=== PATIENT | male | born 1965 | race Caucasian/White ===

== ENCOUNTER 2021-10-04 13:23 | Outpatient (CLI) | payer BC, SELFPAY ==
[2021-10-04 16:42] LABS: Chloride* 104 mmol/L (96-114); Sodium* 139 mmol/L (135-149)
[2021-10-04 16:43] LABS: Potassium* 4.6 mmol/L (3.6-5.1)
[2021-10-04 16:45] LABS: Creatinine* 0.8 mg/dL (0.5-1.5); Estimated Glomerular Filt Rate 104.51
[2021-10-04 16:46] LABS: Blood Urea Nitrogen* 19 mg/dL (7-30); Calcium* 9.6 mg/dL (8.4-10.6); Carbon Dioxide* 31 mmol/L (20-32); Glucose* 90 mg/dL (60-115)
== END 2021-10-04 13:24 | disposition home or self-care (01) ==
LOC: LAB 13:24
PROVIDERS: PCP Family Medicine; Visit Provider Family Medicine
DX: Z01.818 Encounter for other preprocedural examination (principal)
CPT/HCPCS: 36415; 80048

== ENCOUNTER 2021-10-19 06:34 | Day surgery (SDC) | payer BC, SELFPAY ==
[2021-10-19] VITALS (13 sets, daily range): BP systolic 123–154; BP diastolic 69–88; PULSE 66–82; RESP 12–16; TEMP 36.1–36.4; O2SAT 96–100; BMI 24.0
[2021-10-19] MEDS: LACTATED RINGERS 1000 ML 1,000 ML 100 ML IV (07:00)
[2021-10-19] MEDS: SODIUM CHLORIDE 0.9 % (FLUSH) 10 ML SYRINGE IVF (07:12)
[2021-10-19] MEDS: CEFAZOLIN 2 GM INJ IVP (08:20)
--- NOTE | 2021-10-19 09:00 | SUR.OPER ---
PATIENT QUESTIONS ANSWERED SATISFACTORILY PREOPERATIVELY.? PATIENT BROUGHT TO OR #4 PER CART.? Patient positioned supine on OR #4 bed.?The perioperative?team tucked arms bilaterally at the patient sides in a neutral position with the drawsheet.? Final approval of positioning by surgeon.?
--- NOTE | 2021-10-19 09:38 | PM.GSPRC ---
Operative Note Date of procedure: 10/19/21 Type of Procedure: Laparoscopic right inguinal hernia repair with mesh Procedure Description: After discussing the risks and benefits of the procedure, the patient signed informed consent.? The operative site was marked and the patient was brought to the operating room and placed on the operating table in supine position.? Care was taken to pad the patient's pressure points.?? The patient was then intubated by anesthesia.?? The operative site was then prepped and draped in the usual sterile fashion.? A time-out was then performed. A curvilinear incision was made below the umbilicus. Dissection was carried down to subcutaneous tissue until the anterior rectus fascia was encountered. This was incised off the midline on the right The rectus muscle fibers were then retracted exposing the posterior fascia. A port with a dissecting balloon was then introduced into the pre-preperitoneal space. This was inflated under direct vision. The balloon was deflated, removed, and a 10 mm working port was placed. The space was insuflated and a 10 mm 30-degree scope was then advanced into the space. Two 5 mm ports were placed in the midline under direct vision. Dissection began on the right side. Elias's ligament and the pubic bone was exposed medially. Following this, dissection was carried out laterally. An indirect defect was noted. The sac was dissected free from the cord structures using a combination of sharp and blunt dissection. Once the sac was completely reduced, a piece of Bard 3DMax mesh for the appropriate side was placed into the abdomen. This was positioned with the marker pointed medially. A Tacker was used to attach the mesh medially at Elias's ligament and 1 tack laterally with care to avoid the epigastric vessels and stay above the inguinal ligament. Once this was completed the sac was placed on top of the mesh and the preperitoneal space desufflated under direct vision. The ports were removed. The fascia from the infraumbilical port was closed with 0 Vicryl. The skin incisions were closed with absorbable subcuticular suture. Sterile dressings were then applied. The scrotum was examined to ensure that both testicles were down. Instrument sponge and needle counts were correct at the end of the case. ? The patient was then woken and transported to the recovery area in stable condition. ? The patient tolerated the procedure well. Findings: Indirect right inguinal hernia Anesthesia: GETA Surgeon: Simin Coleman MD Estimated blood loss (mL): 5 Condition: stable Disposition: PACU
--- NOTE | 2021-10-19 09:46 | W.ANESCHARGE ---
Anesthesia Charges Start Date/Time Anesthesia Start Date: 10/19/21 Anesthesia Start Time: 08:12 Stop Date/Time Anesthesia Stop Date: 10/19/21 Anesthesia Stop Time: 09:45 Summary Emergency: No
[2021-10-19] MEDS: HYDROCODONE-ACETAMIN 5-325 MG 1 TAB PO (10:34)
--- NOTE | 2021-10-19 11:07 | W.ANESCHARGE ---
Anesthesia Charges Start Date/Time Anesthesia Start Date: 10/19/21 Anesthesia Start Time: 08:12 Stop Date/Time Anesthesia Stop Date: 10/19/21 Anesthesia Stop Time: 09:45 Summary Emergency: No
== END 2021-10-19 11:48 | disposition home or self-care (01) ==
PROVIDERS: PCP Family Medicine; Visit Provider Surgery
PROC: (CPT 49650; principal; 2021-10-19 08:00)
DX: K40.90 Unilateral inguinal hernia, without obstruction or gangrene, not specified as recurrent (principal)
CPT/HCPCS: 49650; 00830; 00860; A9270; C1781; J0330; J0690; J1885; J2250; J2704; J2710; J3010; J7120

== ENCOUNTER 2022-02-19 10:45 | Outpatient (CLI) | payer BC, SELFPAY ==
--- OUTSIDE RECORDS SUMMARY | 2022-02-21 11:04 | XMS_ITS | Clinical Summary ---
:1965 Author Organization [facility] [place] [address] Care Team Providers Name Role Phone Alan Nance MD Primary Care Provider Allergies No known active allergies Medications Medication Sig Dispensed Refills Start Date End Date Status busPIRone (BUSPAR) 10 Take 20 mg by 0 10/20/2020 Active mg tablet mouth 2 times daily. cloNIDine HCL Take 0.1 mg by 0 11/10/2020 Active (CATAPRES) 0.1 mg mouth 2 times tablet daily. lisinopriL (PRINIVIL; Take 20 mg by 0 03/23/2020 Active ZESTRIL) 20 mg tablet mouth once daily. rosuvastatin (CRESTOR) Take 20 mg by 0 10/20/2020 Active 20 mg tablet mouth once daily with evening meal. venlafaxine (EFFEXOR Take 150 mg by 0 10/29/2020 Active XR) 150 mg mouth once daily Extended-Release with evening capsule meal. venlafaxine (EFFEXOR Take 75 mg by 0 10/29/2020 Active XR) 75 mg cp24 mouth once daily Extended-Release with a meal. capsule ALPRAZolam (XANAX) 0.5 each time if 0 01/27/2020 Active mg tablet needed. losartan (COZAAR) 50 mg once daily. 0 12/19/2020 Active tablet albuterol (PROAIR Inhale 2 Puffs by 0 Active RESPICLICK) 90 mouth every 4 mcg/actuation INHALER hours if needed. loratadine (CLARITIN) Take 10 mg by 0 Active 10 mg tablet mouth once daily. potassium citrate Take 1 Tablet (10 60 Tablet 11 01/04/2021 Active (UROCIT-K) 10 mEq mEq) by mouth 2 (1,080 mg) times daily. tabletIndications: Kidney stone fluticasone Inhale 1 Puff by 60 Each 0 01/11/2021 Active propion-salmeteroL mouth 2 times (Advair Diskus) 250-50 daily. mcg/Dose diskus inhalerIndications: Wheezing fluticasone Inhale 1 Puff by 60 Each 0 01/11/2021 Active propion-salmeteroL mouth 2 times (Advair Diskus) 250-50 daily. mcg/Dose diskus inhalerIndications: Wheezing baclofen (LIORESAL) 10 Take 1 Tablet (10 15 Tablet 0 Active mg tabletIndications: mg) by mouth 4 Acute exacerbation of times daily. chronic low back pain, Chronic left-sided low back pain with left-sided sciatica Active Problems No known active problems Encounters Date Type Specialty Care Team Description 02/18/2022 Emergency Ball, Barbara Inguinal alison n, unspecified laterality (Primary Dx); MD Asiya Nephrolithiasis 02/17/2022 Office Visit Care, [facility] Ur[facility] Injury; Er ror-please disregard (appt cancellation) 02/17/2022 Travel from Last 3 Months Social History Tobacco Use Types Packs/Day Years Used Date Former Smoker Cigarettes Quit: 1989 Smokeless Tobacco: Current User Chew Tobacco Cessation: Ready to Quit: No; Co unseling Given: Yes Alcohol Use Standard Drinks/Week Comments Not Currently 0 (1 standard drink = 0.6 oz pure alcoho l) Sex Assigned at Date Recorded Not on file COVID-19 Exposure Response Date Recorded In the last 10 days, have you been in contact No / Unsure 02/17/2022 12:34 PM SHAKE FEEDER with someone who was confirmed or suspected to have Coronavirus/COVID-19? Obstetrics History Last Filed Vital Signs Vital Sign [place] Time Taken Comments Blood Pressure 142/88 02/18/2022 2:47 PM SHAKE FEEDER Pulse 78 02/18/2022 2:47 PM SHAKE FEEDER Temperature 36.6 ??C (97.8 ??F) 02/18/2022 2:47 PM SHAKE FEEDER Respiratory Rate 18 02/18/2022 2:47 PM SHAKE FEEDER Oxygen Saturation 97% 02/18/2022 2:47 PM SHAKE FEEDER Inhaled Oxygen Concentration - - Weight 78.5 kg (173 lb) 02/18/2022 12:02 PM SHAKE FEEDER Height 180.3 cm (5' 11) 02/18/2022 12:02 PM SHAKE FEEDER Body Mass Index 24.13 02/18/2022 12:02 PM SHAKE FEEDER Plan of Treatment Health Maintenance Due Date Last Done Comments Tdap 1977 Depression screening for age 12+ 1978 HIV for age 15-65 1981 BMI (ht and wt on same day) for age 18+ 01/04/1984 Hepatitis C screening for age 18-79 01/04/1984 Tetanus booster 1986 Colonoscopy through age 75 2011 Lipids for age 45-75 2011 Zoster (shingles) series for age 50+ (1 of 2) 01/04/2016 COVID-19 vaccine series (2 - Booster for Maira 08/12/2020 06/17/2020 series) Influenza for age 50-64 11/23/2021 Medical Devices Implanted Type Area Horticultural Farmer Device Shelf Model / Identifier Expiration Serial / Lot Date Stent Uret [id number] Contour - [id number] Left: BSC Urolo gy 08/25/2023 [id number] / Implanted: Qty: 1 on 12/22/2020 by Quinn Pak MD at [facility] Ureter / [id number] Procedures Procedure Name Priority Date/Time Associated Comments Diagnosis URINALYSIS STAT 02/18/2022 2:07 PM Results f or this MICROSCOPIC SHAKE FEEDER procedure are i n the results section. UA W/ SEDIMENT EXAM STAT 02/18/2022 2:07 PM Re sults for this REFLEXED PER CRITERIA SHAKE FEEDER proced ure are in the results section. CT ABDOMEN PELVIS W STAT 02/18/2022 1:25 PM Re sults for this SHAKE FEEDER procedure are i n the results section. BASIC METABOLIC PANEL STAT 02/18/2022 12:25 Re sults for this PM SHAKE FEEDER procedure are i n the results section. CBC W PLT NO DIFF STAT 02/18/2022 12:25 Result s for this PM SHAKE FEEDER procedure are i n the results section. from Last 3 Months Results (ABNORMAL) URINALYSIS MICROSCOPIC (02/18/2022 2:07 PM SHAKE FEEDER) [facility] Method Time Signature RBC 11-25 (A) 0-2, None 02/18/2022 [place] Seen /HPF 2:19 PM [facility] LABOR[facility]ORY WBC 0-2 0-2, 3-5, 02/18/2022 [place] None Seen 2:19 PM [facility] /HPF LABORATORY BACTERIA Few None 02/18/2022 [place] Seen, 2:19 PM [facility] Rare, Few LABORATORY Bacteria/ HPF EPITHELIAL Few None 02/18/2022 [facility] CELLS Seen, Few 2:19 PM [facility] Epi/HPF LABORATORY RENAL Few Few 02/18/2022 [facility] EPITHELIAL 2:19 PM [facility] CELLS LABORATORY Mucus Present 02/18/2022 [place] 2:19 PM [facility] AMORPHOUS Present (A) (none) 02/18/2022 [place] 2:19 PM [facility]OR[facility]ORY Specimen Anatomical Collection Method Collection Time Receive d Time (Source) Location / / Volume Laterality Urine URINE SPECIMEN / Non-Blood / 02/18/2022 2:07 PM 02/18 2:10 Unknown Unknown SHAKE FEEDER [facility] Barbara Randle MD URINE Performing Organization Address City/State/ZIP Code Phon e Number [facility] [address] [place] [address] (ABNORMAL) URINALYSIS W REFLEX MICROSCOPIC IF POSITIVE (02/18/2022 2:07 PM SHAKE FEEDER) [facility] Method Time Signature COLOR Yellow Yellow Color 02/18/2022 [facility] 2:18 PM [facility] CLARITY Slightly Clear 02/18/2022 [facility] Cloudy (A) Clarity 2:18 PM [facility] SPECIFIC 1.010 1.010, 02/18/2022 [place] GRAVITY,URINE 1.015, 2:18 PM [facility] MEDICAL 1.020, 1.025 [place] [facility] PH,URINE 7.5 6.0, 7.0, 02/18/2022 [place] 8.0, 5.5, 2:18 PM [facility] MEDICAL 6.5, 7.5, CENTER 8.5 LABORATORY UROBILINOGEN, Normal Normal EU/dl 02/18/2022 [facility] QUALITATIVE 2:18 PM [facility] PROTEIN, Negative Negative 02/18/2022 [facility] URINE mg/dL 2:18 PM [facility] GLUCOSE, Negative Negative 02/18/2022 [facility] URINE mg/dL 2:18 PM [facility] LABOR[facility]ORY KETONES,URINE Negative Negative 02/18/2022 [facility] mg/dL 2:18 PM [facility] BILIRUBIN,URI Negative Negative 02/18/2022 [facility] NE 2:18 PM [facility] OCCULT Moderate (A) Negative 02/18/2022 [facility] BLOOD,URINE 2:18 PM [facility] NITRITE Negative Negative 02/18/2022 [place] 2:18 PM [facility] LEUKOCYTE Negative Negative 02/18/2022 [facility] ESTERASE 2:18 PM [facility] Specimen Anatomical Collection Method Collection Time Receive d Time (Source) Location / / Volume Laterality Urine URINE SPECIMEN / Non-Blood / 02/18/2022 2:07 PM 02/18 2:10 Unknown Unknown SHAKE FEEDER PM SHAKE FEEDER Barbara Randle MD URINE Performing Organization Address City/State/ZIP Code Phon e Number [facility] [address] [place] [address] CT ABD/PELVIS W IV CONTRAST (02/18/2022 1:25 PM SHAKE FEEDER) Anatomical Region Laterality Modality Abdomen, Pelvis, AORTA, LIVER, SPLEEN Co mputed Tomography Specimen (Source) Anatomical Collection Method Collection Time Re ceived Time Location / / Volume Laterality 02/18/2022 1:54 PM SHAKE FEEDER Impressions 02/18/2022 1:54 PM SHAKE FEEDER 1. Left nephrolithiasis with partially obstructing calculus in mid left ureter. Left ureteral calculus measures 8 mm in craniocaudal dimension. Correlate with any left-sided flank pain. 2. No obstructing right renal or uretera l calculi. No right-sided hydronephrosis. 3. Cholelithiasis. 4. Normal appendix. Please note that all CT scans at this [facility] use dose modulation, iterative reconstruction, and/or weight-based dosing when appropriate to reduce radiation dose to as low as reasonably achievable. Dictated by Mahin Esquivel MD @ 02/18/2022 1:54:52 PM (Electronically Signed) Narrative 02/18/2022 1:54 PM SHAKE FEEDER For Patients: ??As a result of the Cures Act, medical imaging exams and procedure report s are released immediately into your [facility]. ??You may view this report before your referring provider. ??If you have questions, please contact your health care provider. INDICATION: Right lower quadrant abdominal pain. TECHNIQUE: CT abdomen and pelvis acquired with i.v. 100 mL Omnipaque 300. Coronal and sagittal reformats were obtained. COMPARISON: None FINDINGS: Housing Counselor CT images: Nonobstructive bowel ga s pattern. Left renal calculi are noted. Moderate stool burden in the ascending colon and rectum. Lower chest: 6 mm noncalcified nodule in the left lower lobe on series 3, image 3. Liver: Unremarkable. Spleen: Unremarkable. Pancreas: Unremarkable. Gallbladder and bile ducts: Numerous lay ering gallstones. No acute inflammatory changes in the gallbladder fossa. Bile ducts normal in caliber. Kidneys: Coarse calcifications in the lo wer pole left kidney on series 2, image 59, largest measuring 7.4 mm on series 2, image 60. Bilateral renal cysts. Minimal asymmetric fullness to the left renal c ollecting system and proximal left urete r. There is obstructing calculus in the mid left ureter, size estimated at 8 mm on coronal reformat series 4, image 47. Adrenal glands: Unremarkable. GI tract: Unremarkable. The appendix is normal in appearance and size. Vascular: Unremarkable. Lymph nodes: Unremarkable. Miscellaneous: Unremarkable. No pneumope ritoneum is seen. No significant ascites is noted. Pelvic Organs: Likely bilateral hydrocel es. No bladder wall calcifications. Mild enlargement of prostate gland. No free pelvic fluid. No enlarged inguinal or pelvic sidewall lymph nodes. Bones: Unremarkable for age. Severe dege nerative disc disease at L5-S1. Procedure Note Mahin Esquivel MD - 02/18/2022F ormatting of this note might be different from the original. For Patients: As a result of the Cures Act, medical imaging exams and procedure reports are released immediately into your electronic medical record. You may view this report before your referring provider. If you have questions, please contact yo health care provider. INDICATION: Right lower quadrant abdominal pain. TECHNIQUE: CT abdomen and pelvis acquired with i.v. 100 mL Omnipaque 300. Coronal and sagittal reformats were obtained. COMPARISON: None FINDINGS: Housing Counselor CT images: Nonobstructive bowel ga s pattern. Left renal calculi are noted. Moderate stool burden in the ascending colon and rectum. Lower chest: 6 mm noncalcified nodule in the left lower lobe on series 3, image 3. Liver: Unremarkable. Spleen: Unremarkable. Pancreas: Unremarkable. Gallbladder and bile ducts: Numerous lay ering gallstones. No acute inflammatory changes in the gallbladder fossa. Bile ducts normal in caliber. Kidneys: Coarse calcifications in the lo wer pole left kidney on series 2, image 59, largest measuring 7.4 mm on series 2, image 60. Bilateral renal cysts. Minimal asymmetric fullness to the left renal collecting system and proximal left ureter. There is obstructi ng calculus in the mid left ureter, size estimated at 8 mm on coronal reformat series 4, image 47. Adrenal glands: Unremarkable. GI tract: Unremarkable. The appendix is normal in appearance and size. Vascular: Unremarkable. Lymph nodes: Unremarkable. Miscellaneous: Unremarkable. No pneumope ritoneum is seen. No significant ascites is noted. Pelvic Organs: Likely bilateral hydrocel es. No bladder wall calcifications. Mild enlargement of prostate gland. No free pelvic fluid. No enlarged inguinal or pelvic sidewall lymph nodes. Bones: Unremarkable for age. Severe dege nerative disc disease at L5-S1. IMPRESSION: 1. Left nephrolithiasis with partially o bstructing calculus in mid left ureter. Left ureteral calculus measures 8 mm in craniocaudal dimension. Correlate with any left-sided flank pain. 2. No obstructing right renal or uretera l calculi. No right-sided hydronephrosis. 3. Cholelithiasis. 4. Normal appendix. Please note that all CT scans at this [facility] use dose modulation, iterative reconstruction, and/or weight-based dosing when appropriate to reduce radiation dose to as low as reasonably achievable. Dictated by Mahin Esquivel MD @ 02/18/2022 1:54:52 PM (Electronically Signed) Barbara Randle MD CT (ABNORMAL) CBC W PLT NO DIFF (02/18/2022 12:25 PM SHAKE FEEDER) [facility] Time Signature WHITE BLOOD 3.9 (L) 4.5 - 11.0 02/18/2022 [place] COUNT thou/cu mm 12:31 PM [facility] RED BLOOD COUNT 5.12 4.30 - 02/18/2022 [place] 5.90 12:31 PM [facility] mil/cu mm LABORATORY HEMOGLOBIN 15.3 13.5 - 02/18/2022 [place] 17.5 g/dL 12:31 PM [facility] HEMATOCRIT 46.5 37.0 - 02/18/2022 [place] 53.0 % 12:31 PM [facility] MCV 91 80 - 100 02/18/2022 [place] fL 12:31 PM [facility] MCH 29.9 26.0 - 02/18/2022 [place] 34.0 pg 12:31 PM [facility] MCHC 32.9 32.0 - 02/18/2022 [place] 36.0 g/dL 12:31 PM [facility] RDW 13.0 11.5 - 02/18/2022 [place] 15.5 % 12:31 PM [facility] PLATELET COUNT 237 140 - 440 02/18/2022 [place] thou/cu mm 12:31 PM [facility] MPV 9.8 6.5 - 11.0 02/18/2022 [place] fL 12:31 PM [facility] Specimen Anatomical Collection Method / Collection Time Recei clarisa Time (Source) Location / Volume Laterality Blood BLOOD SPECIMEN / Venipuncture / 02/18/2022 12:25 02/18 Unknown Unknown PM SHAKE FEEDER 12:27 PM SHAKE FEEDER Barbara Randle MD HEMATOLOGY Performing Organization Address City/State/ZIP Code Phon e Number [facility] [address] [place] [address] (ABNORMAL) BASIC METABOLIC PANEL (02/18/2022 12:25 PM SHAKE FEEDER) Analysis Performed At [facility] Time Signature SODIUM 141 135 - 145 02/18/2022 [place] mmol/L 12:48 PM [facility] POTASSIUM 4.0 3.5 - 5.0 02/18/2022 [place] mmol/L 12:48 PM [facility] CHLORIDE 107 98 - 110 02/18/2022 [place] mmol/L 12:48 PM [facility] CO2,TOTAL 24 21 - 31 02/18/2022 [place] mmol/L 12:48 PM [facility] ANION GAP 10 5 - 18 02/18/2022 [place] 12:48 PM [facility] GLUCOSE 113 (H) 65 - 100 02/18/2022 [place] mg/dL 12:48 PM [facility] CALCIUM 9.2 8.5 - 10.5 02/18/2022 [place] mg/dL 12:48 PM [facility] BUN 16 8 - 25 02/18/2022 [place] mg/dL 12:48 PM [facility] CREATININE 0.78 0.72 - 02/18/2022 [place] 1.25 mg/dL 12:48 PM [facility] BUN/CREAT RATIO 21 (H) 10 - 20 02/18/2022 [place] 12:48 PM [facility] eGFR >90 >90 02/18/2022 [place] mL/min/1.7 12:48 PM [facility] 3m2 LABORATORY Comment: As of 2021, eGFR is calcu lated by the CKD-EPI creatinine equation without race adjustment. eGFR can be inf luenced by muscle mass, exercise, and diet. The reported eGFR is an estimation only and is only applicable if the renal function is stable. Specimen Anatomical Collection Method / Collection Time Recei clarisa Time (Source) Location / Volume Laterality Blood BLOOD SPECIMEN / Venipuncture / 02/18/2022 12:25 02/18 Unknown Unknown PM SHAKE FEEDER 12:27 PM SHAKE FEEDER Barabra Randle MD CHEMISTRY Performing Organization Address City/State/ZIP Code Phon e Number [facility] [address] [facility] [place] [address] from Last 3 Months Insurance Payer Benefit Plan / Subscriber ID Effective Dates Phone Addre ss Type Group WC WORKERS WC [facility] [id number] 2021-Present [address] [address] [place] [address] [employer] OF [id number] 2017-Present [address] [address] [place] [address] (Home) [place] [address] Abdi Fitch Comp Self [address] (Home) [place] [phone] (Work) Abdi Fitch Comp Self [address] (Home) [place] [address] Advance Directives Latest Code Status on File Code Status Date Activated Date Inactivated Comments Full Code 12/22/2020 11:04 AM 12/22/2020 8:40 PM Code Status Discussion: Not Discussed Care Teams Aesthetician Relationship Specialty Start Date End Date Alan Nance MD PCP - General Family Practice 11/23/201999 [place] [address]
== END 2022-02-19 10:46 | disposition home or self-care (01) ==
LOC: NFLDREF 02-21 10:50
PROVIDERS: PCP Family Medicine; Visit Provider Family Medicine
DX: R31.9 Hematuria, unspecified (principal); N20.0 Calculus of kidney
CPT/HCPCS: 87086

== ENCOUNTER 2023-08-28 08:42 | Outpatient (CLI) | payer BC, SELFPAY ==
--- OUTSIDE RECORDS SUMMARY | 2023-09-01 11:05 | XMS_ITS | Clinical Summary ---
Author Organization [employer] [facility] Address [place], [place] [address] Care Team Providers Care Ocean [employer] Lieutenant Name Role Phone Alan Nance MD Primary Care Provider [phone] Allergies No known active allergies Medications Medication Sig Dispensed Refills Start Date End Date Status busPIRone (BUSPAR) 10 mg tablet Take 20 mg by mouth 2 times daily. 10/20/2020 Active cloNIDine HCL (CATAPRES) 0.1 mg tablet Take 0.1 mg by mouth 2 times daily. 11/10/2020 Active rosuvastatin (CRESTOR) 20 mg tablet Take 20 mg by mouth once daily with evening meal. 10/20/2020 Active venlafaxine (EFFEXOR XR) 150 mg Extended-Release capsule Take 150 mg by mouth once daily. 10/29/2020 Active venlafaxine (EFFEXOR XR) 75 mg cp24 Extended-Release capsule Take 75 mg by mouth once daily with a meal. 10/29/2020 Active ALPRAZolam (XANAX) 0.5 mg tablet Take 0.5 mg by mouth each time if needed. 01/27/2020 Active losartan (COZAAR) 50 mg tablet Take 50 mg by mouth once daily. 12/19/2020 Active albuterol (PROAIR RESPICLICK) 90 mcg/actuation INHALER Inhale 2 Puffs by mouth every 4 hours if needed. Active loratadine (CLARITIN) 10 mg tablet Take 10 mg by mouth once daily. Active Active Problems Problem Noted Date Diagnosed Date Influenza A 03/21/2022 HTN (hypertension) 03/21/2022 Mixed hyperlipidemia 03/21/2022 JOSESITO (generalized anxiety disorder) 03/21/2022 Hydronephrosis concurrent wi th and due to calculi of kidney and ureter 03/21/2022 Abnormal urinalysis 03/21/2022 Hydronephrosis concurrent wi th and due to calculi of kidney and ureter Social History Tobacco Use Types Packs/Day Years Used Date Smoking Tobacco: Former Cigarettes Q uit: 1989 Smokeless Tobacco: Current Chew Tobacco Cessation:Ready to Q uit: No; Counseling Given: Yes Alcohol Use Standard Drinks/Week Comments Not Currently 0 (1 standard drink = 0.6 oz pur e alcohol) Social Connections Answer Date Recorded Frequency of Communication with Friends and Fami ly Not on file 07/24/2023 Financial Resource Strain Answer Date R ecorded Difficulty of Paying Living Expenses 3 07/02/2022 Difficulty of Paying Living Expenses Not on file 07/02/2022 Food Insecurity Answer Date Recorded Worried About Running Out of Food in the Last Ye ar 1 07/02/2022 Transportation Needs Answer Date Record ed Lack of Transportation (Medical) 1 07/02/2022 Housing Stability Answer Date Recorded Unable to Pay for Housing in the Last Year 1 07/02/2022 Sex and Gender Information Value Date Recorded Sex Assigned at Not on file Gender Identity Not on file Sexual Orientation Not on file Obstetrics History Last Filed Vital Signs Vital Sign Reading Time Taken Comments Blood Pressure 115/71 10/17/2022 2:34 PM CDT Pulse 89 10/17/2022 2:34 PM CDT Temperature 36.4 ??C (97.6 ??F) 10/17/2022 2:34 PM CD T Respiratory Rate 18 09/26/2022 1:20 PM CDT Oxygen Saturation 98% 10/17/2022 2:34 PM CDT Inhaled Oxygen Concentration - - Weight 77.1 kg (170 lb) 10/17/2022 2:34 PM CDT Height 180.3 cm (5' 10.98) 10/17/2022 2:34 PM C DT Body Mass Index 23.72 10/17/2022 2:34 PM CDT Plan of Treatment Health Maintenance Due Date Last Done Comments Tdap 1977 Depression screening for age 12+ 1978 HIV for age 15-65 1981 Hepatitis C screening for ag e 18-79 01/04/1984 Tetanus booster 1986 Colonoscopy through age 75 2011 Lipids for age 45-75 2011 Zoster (shingles) series for age 50+ (1 of 2) 01/04/2016 COVID-19 vaccine series (2 - 2022- season) 2022 06/17/2020 BMI (ht and wt on same day) for age 18+ 10/18/2023 10/17/2022 Influenza for age 50-64 11/24/2023 Pneumococcal series for age 6-64 Aged Out No longer eligible based on patient's age to complete this topic Medical Devices Implanted Type Area Water Analyst Device Identifier Shelf Expiration Date Model / Serial / Lot Stent Uret [id number] Contour - [id number] Implanted:Qty: 1 on 12/22/2020 by Quinn Pak MD at [facility] Left: Ureter [facility] 08/25/2023 [id number] / / [id number] Stent Uret [id number] Contour - [id number] Implanted:Qty: 1 on 03/05/2022 by Brenden Love MD at [facility] Left: Ureter [facility] 01/06/2024 [id number] / [id number] Advance Directives * Full Code (Latest Code Status on File) Date Activated Date Inactivated Comments 03/21/2022 4:25 PM 03/23/2022 4:57 PM Question Answer Comments Code Status Discussion: Reviewed Preferences * Full Code Date Activated Date Inactivated Comments 03/05/2022 7:57 AM 03/05/2022 3:08 PM Question Answer Comments Code Status Discussion: Not Discussed * Full Code Date Activated Date Inactivated Comments 12/22/2020 11:04 AM 12/22/2020 8:40 PM Question Answer Comments Code Status Discussion: Not Discussed Care Teams [employer] Lieutenant Relationship Specialty Start Date End Date Alan Nance MD [address] [place] [address] PCP - General Family Practice 11/23/20
--- OUTSIDE RECORDS SUMMARY | 2023-09-01 11:06 | XMS_ITS | Data Portability ---
Author Organization [facility], [facility] Address [address] [place] [address] Care Team Providers Care Proposal Analyst Name Role Phone [facility] Care Provider Assessment Encounter Date Assessment Date Assessment LastModified by Organization Details LastModified Time 02/26/2022 02/26/2022 57-year-old male with left ureteral stone and bilateral renal calculi Not available 02/26/2022 09:54:27 04/11/2022 04/11/2022 57-year-old male with left ureteral stone and bilateral renal calculi [email or web address] Not available 04/06/2022 13:46:31 Plan of Treatment Reminders Order Date Submit Date Provider Last Modified By Organization Details Last Modified Time Details Appointments None recorded. Lab None recorded. Referral None recorded. Procedures None recorded. Surgeries cystoscopy, with ureteroscop y, with lithotripsy , with insertion of ureteral stent (SURG) 2021 022 [email or web address] Not available 14:21:58 Imaging None recorded. Medication Orders Bactrim DS 800 mg-160 mg tablet 2022 023 [employer] #[id number], [address] [place], [place], [id number], 3 11:48:09 tamsulosin 0.4 mg capsule 2021 022 [facility] #[id number], [address] [place], [place], [id number], 2 16:06:18 ketorolac 10 mg tablet 2021 022 [id number], [address] [place], [place], [id number], 3 11:19:44 ondansetron HCl 8 mg tablet 2021 022 [facility] #[id number], [address] [place], [place], [id number], 2 16:06:19 Patient TargetsNo targets recorded. Patient Instructions Encounter Date Encounter Id Patient Instructions Last Modified By Organization Details Last Modified Time 04/11/2022 [id number] 24 hour urine collection Not available 04/11/2022 11:48:01 02/26/2022 [id number] Ureteroscopy wit h Stone Manipulation - PATIENT INFORMED CONSENT Ureteroscopy is a procedure in which a thin telescope is inserted into the ureter (tube that drains the kidney) to remove a stone or obstruction. The goal of this treatment is to remove or break urinary stones into particles small enough to be removed from the urinary tract. This may be accomplished with a laser and/or stone basketing. I understand that there are alternative methods to treat urinary stones, which include: No treatment of the urinary stone(s). Manipulation of a stone in the ureter back into the kidney with placement of a stent (a tube that drains the kidney ? which may be followed by another treatment Shock Wave Lithotripsy (ESWL), or treatment of stones with energy waves Percutaneous Lithotripsy (PNL), a puncture/scope technique through the side directly into the kidney (generally reserved for larger stones) Surgical removal of stone(s) through an incision. I realize that ureteroscopy with stone manipulation MAY or MAY NOT successfully fragment my stones. In many cases, a temporary ureteral stent will be necessary to allow for the passage of stones. I further recognize that some fragments may require alternative treatments to be used following ureteroscopy. I understand that radiographs (x-rays) and other diagnostic studies are necessary following treatment to assess the success of treatment and to diagnose urinary drainage problems, which might result from treatment. I understand that any tubes placed in my urinary tract before, during and after ureteroscopy treatment will need to be removed in a timely fashion. RISKS OF Ureteroscopy with Stone Manipulation The stone may be incompletely fragmented and require alternative treatment. There may be damage to the ureter required prolonged stenting or open repair There may be bleeding sufficient enough to require transfusion. Urinary infection associated with stones may become aggravated and become life threatening. Malfunction of the laser or equipment is a possibility and may require re-scheduling Damage to kidney can occur and may require the removal of the kidney. Damage to the ureter, or tube that drains the kidney may occur and may result in scarring or stricture Anesthesia risks including heart attack, stroke, and even . THESE ARE NOT PROBABLE RESULTS, BUT THEY ARE STATISTICAL POSSIBILITIES. I understand that ureteroscopy should not be performed if I am . A test is required on ALL women where is a possibility. PATIENT ACKNOWLEDGEMENT I have been given an opinion as to the appropriateness of ureteroscopy with stone manipulation for my condition by my personal physician. I have the right to seek a second opinion regarding my care. I understand that it is my responsibility to seek follow-up care from my urologist after treatment. I will be given instructions on necessary post-treatment care. If a ureteral stent has been placed it will need to be removed at a later date (second stage procedure) in the office. I have been allowed to ask questions about the treatment. I have read this form and/or it has been explained to me. I understand that by signing this form, I am consenting to the performance of ureteroscopy with stone manipulation for treatment of stones and any of the above-mentioned alternative procedures necessary for my best health. By signing this document, I agree that any problems, risks, or complications, which may arise either in whole or in part as a result of inaccurate or incomplete information shall be my responsibility. Not available 02/26/2022 17:07:00 Reason for Referral None Reported. Results Created Date Observation Date Name Description Value Unit Range Abnormal Flag LastModifiedBy Organization Detail LastModifiedTime 02/22/20 22 02/18/2022 CT, abdom en + pelvi s, w/o contr ast No observ ation record ed. Not Available 02/26/2022 17:04:38 04/09/19 23 04/08/2022 CT, abdom en + pelvi s, w/o contr ast No observ ation record ed. Not Available 04/11/2022 13:51:50 04/09/19 23 03/21/2022 CT, abdom en + pelvi s, w/ contr ast No observ ation record ed. Not Available 04/11/2022 13:51:50 Result Notes None recorded. Procedures Surgical History Date Name Laterality Status Provider Name and Address Organization Details Recorded Time MARIELY Stent Removal completed Quinn Pak MD [address] [place] [address],[address], [place], [address], [facility] 04/11/2022 09:40:09 Imaging Results Imaging Date Name Status LastModified by Organiz ation Details LastModified Time 02/18/2022 CT, abdomen + pelvis, w/o contrast completed Information not available 02/26/2022 17:04:38 04/08/2022 CT, abdomen + pelvis, w/o contrast completed Information not available 04/11/2022 13:51:50 03/21/2022 CT, abdomen + pelvis, w/ contrast completed [email or web address] Information not available 04/11/2022 13:51:50 Procedure Notes None recorded. Medical Equipment None Reported. Allergies No known drug allergies Medications Name Sig Start Date Stop Date Status Note LastModified by Organization Details LastModified Time losartan 50 mg tablet active Not Available Not Available No t Available amoxicillin 500 mg capsule 04/11 completed Not Available Not Available Not Available clonidine HCl 0.1 mg tablet active Not Available Not Available Not Available venlafaxine ER 75 mg capsule,ext ended release 24 hr TAKE 1 CAPSULE EVERY DAY active Not Available Not Available No t Available azithromyci n 250 mg tablet TAKE 2 TABLETS BY MOUTH TODAY THEN 1 TABLET DAILY FOR 4 DAYS 02/26 completed Not Available Not Available Not Available hydrocodone 5 mg-acetamin ophen 325 mg tablet TAKE 1 TO 2 TABLETS BY MOUTH THREE TIMES DAILY NEEDED FOR PAIN 04/11 completed Not Available Not Available Not Available ondansetron HCl 8 mg tablet TAKE 1 TABLET BY MOUTH TWICE DAILY active Not Available Not Available No t Available phenazopyri dine 200 mg tablet active Not Available Not Available Not Available lisinopril 20 mg tablet 12/05 /2022 completed Not Available Not Available Not Available prednisone 20 mg tablet TAKE 1 TABLET BY MOUTH TWICE DAILY FOR 5 DAYS 02/26 completed Not Available Not Available Not Available venlafaxine ER 150 mg capsule,ext ended release 24 hr TAKE 1 CAPSULE BY MOUTH EVERY DAY active Not Available Not Available No t Available sulfamethox azole 800 mg-trimetho prim 160 mg tablet TAKE 1 TABLET BY MOUTH EVERY 12 HOURS active Not Available Not Available No t Available acetaminoph en 500 mg tablet TAKE 2 TABLETS BY MOUTH EVERY 6 HOURS 02/26 completed Not Available Not Available Not Available ondansetron 8 mg disintegrat ing tablet PLACE 1 TABLET ON THE TONGUE EVERY 6 HOURS NEEDED FOR NAUSEA AND VOMITTING 02/26 completed Not Available Not Available Not Available ketorolac 10 mg tablet TAKE 1 TABLET BY MOUTH EVERY 6 HOURS 04/11 completed Not Available Not Available Not Available oxycodone-a cetaminophe n 5 mg-325 mg tablet TAKE 1 TO 2 TABLETS BY MOUTH THREE TIMES DAILY NEEDED FOR PAIN 04/11 completed Not Available Not Available Not Available alprazolam 0.5 mg tablet active Not Available Not Available Not Available tamsulosin 0.4 mg capsule Take 1 capsule every day by oral route. 2021 active Not Available Not Available Not Avai lable phenazopyri dine 100 mg tablet active Not Available Not Available Not Available baclofen 10 mg tablet active Not Available Not Available No t Available potassium citrate ER 10 mEq (1,080 mg) tablet,exte nded release active Not Available Not Available Not Available cephalexin 500 mg capsule 04/11 completed Not Available Not Available Not Available oseltamivir 75 mg capsule active Not Available Not Available Not Available buspirone 10 mg tablet active Not Available Not Available Not Available prednisone 50 mg tablet TAKE 1 TABLET BY MOUTH EVERY DAY active Not Available Not Available No t Available ibuprofen 600 mg tablet TAKE 1 TABLET BY MOUTH EVERY 6 HOURS NEEDED FOR PAIN 02/26 completed Not Available Not Available Not Available cefuroxime axetil 500 mg tablet 04/11 completed Not Available Not Available Not Available levofloxaci n 750 mg tablet TAKE 1 TABLET BY MOUTH ONCE A DAY FOR 5 DAYS 04/11 completed Not Available Not Available Not Available oxycodone 5 mg tablet TAKE 1 TABLET BY MOUTH EVERY 4 HOURS NEEDED FOR PAIN 02/26 completed Not Available Not Available Not Available rosuvastati n 20 mg tablet active Not Available Not Available Not Available Vitals Date Recorded Body height Body mass index (BMI) Body weight Provider Name and Address Organization Details Last Updated DateTime 02/26/2022 180.34 cm 23.4 kg/m2 59261.52 g Yue Radford [facility] 02/26/2022 15:54:43 Date Recorded Body height Body mass index (BMI) Body weight Provider Name and Address Organization Details Last Updated DateTime 04/11/2022 180.34 cm 23.4 kg/m2 23280.52 g Quinn Pak MD [address] [address], [place], [address], [facility] 04/11/2022 11:18:12 Social History Question Answer Notes LastModified by Organizat ion Details LastModified Time Tobacco Smoking Status Former Smoker Yue Radford [facility], [facility] 02/26/2022 15:56:13 What Is Your Level Of Alcohol Consumption? None Information not available 02/26/2022 When Did You Quit Smoking? 16+yearssinc elastcigaret te Information not available 02/26/2022 What Was The Date Of Your Most Recent Tobacco Screening? 04/11/2022 Information not available 04/11/2022 Sex: Male Functional Status None recorded. Mental Status None recorded. Family History Nothing Reported. Medical History Condition Response Kidney Stones Y Past Encounters Encounter ID Performer Location Encounter Start Date Encounter Closed Date Diagnosis/Indication Diagnosis SNOMED-CT Code [id number] MD Ashlee Javed [address] [place] [id number] 02/26/2022 15:33:18 02/28/2022 09:12:25 Ureteric stone [id number] Recurrent kidney stone [id number] 2 [id number] MD Ashlee Javed [address] [place] [id number] 04/11/2022 10:33:00 04/13/2022 09:08:33 Ureteric stone [id number] Recurrent kidney stone [id number] Urinary tr act infectious disease [id number] Health Concerns Section Related Observation LastModified by Organization Detai ls LastModified Time None Recorded Concern Status LastModified by Organization Details LastModified Time None Recorded Advance Directives Directive None Recorded Payers Encounter Date Sequence Insurance Name Policy Number Policy Gamino Covered Member ID Gamino Member ID Guarantor Name 04/11/2022 1 [facility] [id number] David Fitch [id number] Abdi Fitch 02/26/2022 1 [facility] [id number] David Fitch [id number] Abdi Mathur Constantine Notes Date Note Type Note Provider Name and Address Organization Details Recorded Time 2 text/html HPI Notes: Patient is a very pleasant 56 yoM who was seen in the [place] [address] ER 11/18/2020 with acute onset of left flank pain and hematuria. Patient underwent work up which included a CT A/P which revealed 2 large left mid to distal ureteral calculi with associated hydroureteronephrosis and a non-obstructing right renal calculus. Was scheduled with Dr. Alicia but unable to see until mid December so referred to me for further evaluation and treatment. He has had stones in the past and reports that they have passed spontaneously. Never seen a urologist before. 01/04/21 Here for follow up left nephrolithasis now s/p URS with laser lithotripsy. Here for stent removal 02/26/22: Here for follow up recurrent nephrolithiasis. Presented to local emergency room with new onset left flank pain. Underwent a CT A/P for my review. I personally reviewed and interpreted the images from patient's CT abdomen pelvis dated 02/18/2022? ? Right kidney with evidence of possible calcification within the lower pole system however presence of intravenous contrast does limit evaluation. On the patient's left there is scattered stone material within the lower pole dependent calyx and mild hydroureteronephrosis down to the level of a approximately 6 mm stone within the mid ureter just proximal to the iliac vessels. Minimal perinephric fat stranding and no evidence of delayed nephrogram. Bladder is incompletely distended but no obvious abnormality seen Quinn Pak MD [address] [facility] [address], [place], [address], [facility] 02/26/2022 17:07:23 3 text/html HPI Notes: Patient is a very pleasant 57 yoM who was seen in the [place] [address] ER 11/18/2020 with acute onset of left flank pain and hematuria. Patient underwent work up which included a CT A/P which revealed 2 large left mid to distal ureteral calculi with associated hydroureteronephrosis and a non-obstructing right renal calculus. Was scheduled with Dr. Alicia but unable to see until mid December so referred to me for further evaluation and treatment. He has had stones in the past and reports that they have passed spontaneously. Never seen a urologist before. 01/04/21 Here for follow up left nephrolithasis now s/p URS with laser lithotripsy. Here for stent removal 02/26/22: Here for follow up recurrent nephrolithiasis. Presented to local emergency room with new onset left flank pain. Underwent a CT A/P for my review. I personally reviewed and interpreted the images from patient's CT abdomen pelvis dated 02/18/2022? ? Right kidney with evidence of possible calcification within the lower pole system however presence of intravenous contrast does limit evaluation. On the patient's left there is scattered stone material within the lower pole dependent calyx and mild hydroureteronephrosis down to the level of a approximately 6 mm stone within the mid ureter just proximal to the iliac vessels. Minimal perinephric fat stranding and no evidence of delayed nephrogram. Bladder is incompletely distended but no obvious abnormality seen 04/11/2022: Here for stent removal. Underwent URS with laser lithotripsy with Dr. Love. Was in ED recently and started on antibiotics. Quinn Pak MD [address] [facility] [address], [place], [address], [facility] 04/11/2022 13:53:05
== END 2023-08-28 08:43 | disposition home or self-care (01) ==
LOC: NFLDREF 09-01 11:03
PROVIDERS: PCP Family Medicine; Referring Provider Family Medicine; Visit Provider Family Medicine
DX: I10 Essential (primary) hypertension (principal); E78.5 Hyperlipidemia, unspecified; Z12.5 Encounter for screening for malignant neoplasm of prostate
CPT/HCPCS: 80053; 80061; G0103

== ENCOUNTER 2024-09-02 08:11 | Outpatient (CLI) | payer BC, SELFPAY | END 2024-09-02 08:12 | disposition home or self-care (01) | LOC: NFLDREF 09-03 19:41 | PROVIDERS: PCP Family Medicine; Referring Provider Family Medicine; Visit Provider Family Medicine | DX: E78.5 Hyperlipidemia, unspecified (principal) | CPT/HCPCS: 80053; 80061 ==